=== PATIENT | female | born 1975 | race Caucasian/White ===

== ENCOUNTER 2024-06-14 11:24 | Emergency (ER) | payer OTHER, SELFPAY ==
[2024-06-14 11:30] VITALS: BP 121/83
[2024-06-14 11:56] VITALS: BMI 25.9
--- NOTE | 2024-06-14 11:58 | ED.GENMED ---
History of Present Illness
General
Chief Complaint: Abdominal Symptoms
Source: patient
Time Seen by Provider: 06/14/24 11:36
History of Present Illness
History of Present Illness:
48-year-old female with past medical history of ulcerative colitis and diverticulitis presenting to the emergency department for evaluation of left lower quadrant abdominal pain that started this past Thursday described to be gradually worsening,
constant, nonradiating, sharp and worse with movement and palpation. Unrelieved with [id number] measures. Patient stating pain is very reminiscent of previous flares of diverticulitis. She notes that her ulcerative colitis flares are
usually generalized within the lower abdomen but that her pain is only left lower quadrant today. She denies any other symptoms including fevers, chills, rigors, nausea, vomiting, bowel changes or urinary symptoms. Patient is on a q. 8 weekly
biologic for her ulcerative colitis and notes that she is currently in the middle of her cycle. Patient has no other concerns at this time. Surgical history was noted for appendectomy in 2017
Past History
Past History
ED Past Medical History: Other (Diverticulitis, ulcerative colitis)
ED Past Surgical History: Appendectomy and Orthopedic
Social History
Tobacco: Non-smoker
Alcohol: Occasional
Drug: None
Personal:
Living: with family
Employment: Employed
Review of Systems
Review of Systems
All Other Systems: ROS reviewed and negative except as documented in HPI and ROS
Phy Exam
Physical Exam
Physical Exam:
GENERAL: Alert , in no apparent distress
EYE: clear conjunctiva b/l
HEAD: NCAT
ENT: o/p clr, mmm.
ABDOMEN: Soft, moderate LLQ pain with palpation, grimaces with palpation, no r/g, no cvat
NEUROLOGICAL: Alert and oriented
SKIN: Warm and dry, skin intact.
MUSCULOSKELETAL: well perfused.
PSYCH: Normal and appropriate interaction.
Scores
Heart Failure Risk
Heart Failure Risk Score: Not Applicable
Heart Score for Chest Pain Patients
STEMI patient?: Not applicable
Withdrawal Assessment of Alcohol
Withdrawal Assessment Completed?: Not applicable
Course
Orders/Labs/Results
Orders:
Orders
06/14/24 11:49
CT Abd/pel W Iv And Oral Contr Urgent
Comment:
Reason For Exam: LLQ pain, hx divertic, hx UC, previous appy
Iohexol [Omnipaque] See Protocol PO NOW STA
Ketorolac [Toradol] 30 mg IV NOW STA
06/14/24 12:01
Test Result ONCE
06/14/24 12:03
Complete Blood Count/With Diff Urgent
Comprehensive Metabolic Panel Urgent
HCG, Serum Qualitative Screen Urgent
Lipase Urgent
06/14/24 12:07
Urinalysis Reflex To Culture Urgent
Date Specimen was Collected: 06/14/24
Time Specimen was Collected: 12:06
06/14/24 12:45
Morphine Sulfate 4 mg IV NOW STA
06/14/24 13:43
HYDROmorphone [Dilaudid] 0.5 mg IV NOW STA
06/14/24 13:45
0.9% Sodium Chloride 1000 ml [Nss] 1,000 ml IV BOLUS
06/14/24 15:21
HYDROmorphone [Dilaudid] 0.5 mg IV NOW STA
Abnormal Lab Results
06/14/24
12:03
MPV 13.1 H fL
(7.4-10.4)
06/14/24 12:03
06/14/24 12:03
Vital Signs
Initial and Last Documented VS:
Initial Vital Signs
Temp Pulse Resp BP Pulse Ox
98.1 F 69 18 121/83 100
06/14/24 11:30 06/14/24 11:30 06/14/24 11:30 06/14/24 11:30 06/14/24 11:30
Last Documented Vital Signs
Temp Pulse Resp BP Pulse Ox
98.1 F 58 10 113/82 98
06/14/24 11:30 06/14/24 14:15 06/14/24 14:15 06/14/24 14:00 06/14/24 14:15
MDM/Problems Addressed
Differential Diagnosis Includes:
diverticulitis, UC flare, pancreatitis, renal/ureteral colic
MDM/Problems Addressed:
48-year-old female presenting to the emergency department for evaluation of left lower quadrant abdominal pain. Patient stating pain is very similar to multiple previous episodes of diverticulitis in the past. She does have clearly reproducible
tenderness within the left lower quadrant on examination. Will treat with Toradol for pain control. CT ordered. Reassessment and disposition following
*Radiology
Radiology exam reviewed: radiology read reviewed
*Pulse Oximetry
Patient hypoxic: no
*Critical Care Note
Total Time (30-74mins, 75-104mins- exclusive of procedures): Not Applicable
Comment
Comment:
On first re-eval patient noting no improvement with toradol, 4mg morphine ordered
Patient did have improved pain following morphine but pain started to return about 45 mins later. 0.5mg dilaudid IV ordered
Patient Management
Escalation/DeEscalation of care consider admission/obs:
Patient CT scan shows mild acute diverticulitis of the descending colon and sigmoid colon. There is no perforation or pericolonic abscess. She is afebrile, no leukocytosis. Patient prefers to be discharged home. Has tolerated Augmentin in the
past. Prior to being discharged home she was requesting additional dose of pain medication. is driving the patient home. Prescription for Augmentin and Percocet provided. Patient will follow-up with primary care provider. She is
otherwise aware of return precautions and stable for discharge.
ED Attending Note
-
Portions of this chart may have been created with voice recognition software.� Occasional wrong word or��sound alike� substitutions may have occurred due to the inherent limitations of voice recognition software.
Discharge Plan
Departure
Patient Disposition: Home (Routine Discharge)
Date of Disposition: 06/14/24
Time of Disposition: 15:21
Patient with high blood pressure during this ER visit?: No
Discharge Problem:
Diverticulitis
Instructions: Diverticulitis (DC)
Prescriptions:
New
amoxicillin-pot clavulanate 875-125 mg tablet
1 tab PO BID 10 Days Qty: 20 0RF
oxycodone-acetaminophen [Percocet] 5-325 mg tablet
1 tab PO Q6HPRN PRN (Reason: pain) Qty: 8 0RF
Referrals:
NONE,* [Family Provider] -
Interventions
Interventions:
*Risk Screen - Suicide Last Done: 06/14/24 11:30
*General Assessment Last Done: 06/14/24 11:30
*Neglect/Abuse Screening Last Done: 06/14/24 11:30
ED- Fall Risk Assessment Last Done: 06/14/24 12:43
*ED COVID-19 Vaccine History Last Done: 06/14/24 11:56
SG-Ilbbgo-Gjuxujcjyy Assessment Last Done: 06/14/24 12:43
Discharge Date and Time
Print Language: ROMANIAN
[2024-06-14 12:03] VITALS: BP 111/80
[2024-06-14] MEDS: TORADOL 30 MG IV (12:04)
[2024-06-14] MEDS: OMNIPAQUE 50 ML PO (12:04)
[2024-06-14 12:20] LABS: Urine Albumin Negative (Neg - Trace); Urine Bilirubin Negative (Negative); Urine Character Clear (Clear); Urine Color Yellow; Urine Glucose Negative (Negative); Urine Ketone Negative (Negative); Urine Leukocyte Negative (Negative); Urine Nitrite Negative (Negative); Urine Occult Blood Negative (Negative); Urine Specific Gravity 1.005 (<1.030); Urine Urobilinogen Negative (Neg - 1+)
[2024-06-14 12:27] LABS: HCG, Serum Qualitative Screen Negative
[2024-06-14 12:28] LABS: % Basophils 0.8 % (0-2); % Eosinophils 1.9 % (0-6); % Immature Granulocytes 0.3 % (0-0.5); % Lymphocytes 22.4 % (20.5-51.1); % Monocytes 8.7 % (1.7-9.3); % Neutrophils 65.9 % (42.2-75.2); Absolute Basophils 0.1 10^3/uL (0-0.2); Absolute Eosinophils 0.1 10^3/uL (0-0.7); Absolute Lymphocytes 1.4 10^3/uL (1.2-3.4); Absolute Monocytes 0.5 10^3/uL (0.1-0.6); Absolute Neutrophils 4.1 10^3/uL (1.4-6.5); Hematocrit 40.1 % (37.0-47.0); Hemoglobin 13.7 g/dL (12.0-16.0); Mean Corp Hgb Conc. 34.2 g/dL (33.0-37.0); Mean Platelet Volume 13.1 fL (7.4-10.4); Nucleated Red Blood Cells % 0 %; Platelet Count 134 10^3/uL (130-400); Red Blood Cell Count 4.72 10^6/uL (4.20-5.40); Red Cell Dist. Width 12.8 % (11.5-14.5); White Blood Cell Count 6.2 10^3/uL (4.8-10.8)
[2024-06-14 12:34] LABS: ALT (SGPT) 23 U/L (0-35); AST (SGOT) 31 U/L (14-36); Albumin 4.6 g/dl (3.5-5.0); Alkaline Phosphatase 77 U/L (38-126); Blood Urea Nitrogen 10 mg/dl (7-17); Calcium 9.8 mg/dl (8.4-10.2); Carbon Dioxide 26 mmol/L (22-30); Chloride 107 mmol/L (98-107); Estimated Creatinine Clearance 85 ml/min; Glucose 97 mg/dl (70-99); Lipase 98 U/L (23-300); Potassium 4.3 mmol/L (3.5-5.1); Sodium 137 mmol/L (135-145); Total Bilirubin 0.9 mg/dl (0.2-1.3); eGFR > 60.00
[2024-06-14] MEDS: MORPHINE SULFATE 4 MG IV (12:48)
[2024-06-14 13:00] VITALS: BP 108/74
[2024-06-14] MEDS: DILAUDID 0.5 MG IV ×2 (13:48→15:44)
[2024-06-14] MEDS: NSS 1000 IV (13:49)
[2024-06-14 14:00] VITALS: BP 113/82
[2024-06-14 15:42] VITALS: BP 108/83
== END 2024-06-14 16:04 | disposition home or self-care (01) ==
LOC: EMR 11:24
PROVIDERS: Physician Assistant Medical; EMERGENCY PHYSICIAN Emergency Medicine
DX: K57.32 Diverticulitis of large intestine without perforation or abscess without bleeding (principal); R10.32 Left lower quadrant pain; K51.90 Ulcerative colitis, unspecified, without complications; Z90.49 Acquired absence of other specified parts of digestive tract
CPT/HCPCS: 99284; 96374; 96375; 96376; 74177; 80053; 81003; 83690; 84703; 85025; Q9967

== ENCOUNTER 2025-04-30 22:22 | Emergency (ER) | payer OTHER, SELFPAY ==
[2025-04-30 22:32] VITALS: BP 126/77
[2025-04-30] MEDS: OMNIPAQUE 50 ML PO (22:56)
[2025-04-30 23:05] LABS: % Basophils 0.7 % (0-2); % Immature Granulocytes 0.2 % (0-0.5); % Monocytes 13.2 % (1.7-9.3); % Neutrophils 61.9 % (42.2-75.2); Absolute Basophils 0.1 10^3/uL (0-0.2); Absolute Eosinophils 0.2 10^3/uL (0-0.7); Absolute Lymphocytes 2.3 10^3/uL (1.2-3.4); Absolute Monocytes 1.4 10^3/uL (0.1-0.6); Absolute Neutrophils 6.4 10^3/uL (1.4-6.5); Hematocrit 39.3 % (37.0-47.0); Hemoglobin 13.2 g/dL (12.0-16.0); Mean Corp Hgb Conc. 33.6 g/dL (33.0-37.0); Mean Corpuscular Hgb 29.4 pg (27.0-31.0); Mean Corpuscular Volume 87.5 fL (81.0-99.0); Mean Platelet Volume 12.4 fL (7.4-10.4); Nucleated Red Blood Cells % 0 %; Platelet Count 141 10^3/uL (130-400); Red Blood Cell Count 4.49 10^6/uL (4.20-5.40); Red Cell Dist. Width 12.4 % (11.5-14.5); White Blood Cell Count 10.3 10^3/uL (4.8-10.8)
[2025-04-30 23:19] LABS: HCG, Serum Qualitative Screen Negative
[2025-04-30 23:25] LABS: ALT (SGPT) 17 U/L (0-35); AST (SGOT) 22 U/L (14-36); Albumin 4.6 g/dl (3.5-5.0); Alkaline Phosphatase 76 U/L (38-126); Blood Urea Nitrogen 8 mg/dl (7-17); Calcium 9.7 mg/dl (8.4-10.2); Carbon Dioxide 29 mmol/L (22-30); Chloride 105 mmol/L (98-107); Glucose 108 mg/dl (70-99); Lipase 78 U/L (23-300); Potassium 3.9 mmol/L (3.5-5.1); Sodium 140 mmol/L (135-145); Total Bilirubin 0.6 mg/dl (0.2-1.3); Total Protein 7.4 g/dl (6.3-8.2); eGFR > 60.00
[2025-04-30 23:37] VITALS: BMI 26.7
--- NOTE | 2025-04-30 23:46 | ED.GENMED ---
History of Present Illness
General
Chief Complaint: Abdominal Pain
Time Seen by Provider: 04/30/25 23:25
History of Present Illness
History of Present Illness:
Patient is a 49-year-old woman with history of diverticulitis ulcerative colitis on every 6-week infusion presenting to the emergency department abdominal pain. Patient states that she developed abdominal pain to the left lower quadrant a few days
ago. Since then the pain has progressed. She is been having alternating constipation and diarrhea. No fevers but has been having some chills. No nausea or vomiting. She has had her appendix removed. She has had recurrent bouts of
diverticulitis and states that this does feel similar. Her GI doctor is at [place]. She did see them a few days ago prior to the symptoms beginning.
Past History
Past History
ED Past Medical History: Other (Diverticulitis, ulcerative colitis)
ED Past Surgical History: Appendectomy and Orthopedic
Social History
Tobacco: Non-smoker
Alcohol: Occasional
Drug: None
Personal:
Living: with family
Employment: Employed
Phy Exam
Physical Exam
Physical Exam:
GENERAL: in no acute distress
HEENT: normocephalic, extraocular movements intact, moist oral mucosa
NECK: normal inspection
RESPIRATORY: no respiratory distress, clear to auscultation bilaterally
CARDIOVASCULAR: regular rate and rhythm
ABDOMEN/: soft, non-distended, tenderness palpation to the left lower quadrant, no rebound or guarding
EXTREMITIES: non-tender, no edema/swelling
NEUROLOGIC: awake and alert, moves all extremities
SKIN: warm
Course
Orders/Labs/Results
Orders:
Orders
04/30/25 22:50
Iohexol [Omnipaque] See Protocol PO NOW STA
04/30/25 22:51
Test Result ONCE
04/30/25 22:56
Complete Blood Count/With Diff Urgent
Comprehensive Metabolic Panel Urgent
HCG, Serum Qualitative Screen Urgent
Lipase Urgent
04/30/25 23:26
Iohexol [Omnipaque] See Protocol PO NOW STA
04/30/25 23:41
HYDROmorphone [Dilaudid] 0.5 mg IV NOW STA
05/01/25 01:00
CT Abd/pel W Iv And Oral Contr Urgent
Reason For Exam: abdominal pain hx divertic
05/01/25 01:23
HYDROmorphone [Dilaudid] 0.5 mg IV NOW STA
05/01/25 02:02
Amoxicillin 875 mg/Clav 125 mg [Augmentin 875 mg/125 mg] 1 tablet PO NOW STA
Abnormal Lab Results
04/30/25
22:56
MPV 12.4 H fL
(7.4-10.4)
Absolute Monos (auto) 1.4 H 10^3/uL
(0.1-0.6)
Monocytes % 13.2 H %
(1.7-9.3)
Glucose 108 H mg/dl
(70-99)
04/30/25 22:56
04/30/25 22:56
Vital Signs
Initial and Last Documented VS:
Initial Vital Signs
Temp Pulse Resp BP Pulse Ox
97.8 F 77 16 126/77 100
04/30/25 22:32 04/30/25 22:32 04/30/25 22:32 04/30/25 22:32 04/30/25 22:32
Last Documented Vital Signs
Temp Pulse Resp BP Pulse Ox
97.8 F 86 14 128/74 99
04/30/25 22:32 05/01/25 00:00 05/01/25 00:00 05/01/25 00:00 05/01/25 00:00
MDM/Problems Addressed
Differential Diagnosis Includes:
Patient is a 49-year-old woman presenting to the emergency department with abdominal pain for the past few days. Vitals are notable for being afebrile and on exam patient does have tenderness palpation in the left lower quadrant. Concern for
diverticulitis versus UC flare though less likely versus enteritis. Blood work obtained prior to my evaluation is unremarkable. Will proceed with CT scan and pain control. I did offer nausea medicine the patient declined at this time
*Critical Care Note
Total Time (30-74mins, 75-104mins- exclusive of procedures): Not Applicable
Update Note
Update Note:
CT scan per my interpretation with no signs of perforation. Per the official read she does have diverticulitis. Given the patient did require Dilaudid here I did discuss admission versus discharge. She did opt for discharge. Will treat with
Augmentin. Patient states she has tolerated before. Will give her Zofran as well in case she develops nausea at home. She is requesting short course of tramadol as every time she is a diverticulitis flare the tramadol is the only medication that
helps. I did review patient's PDMP and patient was last prescribed it last year. Will give her 3 tablets of tramadol. Will discharge patient at this time. Strict return precautions given.
ED Attending Note
-
Portions of this chart may have been created with voice recognition software.� Occasional wrong word or��sound alike� substitutions may have occurred due to the inherent limitations of voice recognition software.
Discharge Plan
Departure
Patient Disposition: Home (Routine Discharge)
Date of Disposition: 05/01/25
Time of Disposition: 02:04
Patient with high blood pressure during this ER visit?: No
Discharge Problem:
Diverticulitis
Prescriptions:
New
amoxicillin-pot clavulanate 875-125 mg tablet
1 tab PO BID 10 Days Qty: 20 0RF
ondansetron 4 mg tablet,disintegrating
4 mg PO Q8H PRN (Reason: nausea and vomiting) 3 Days Qty: 7 0RF
tramadol 50 mg tablet
50 mg PO Q8H PRN (Reason: Pain) Qty: 3 0RF
No Action
Entyvio 300 mg Recon Soln
300 mg IV Q6W
Referrals:
UNKNOWN - PT DOES,NOT KNOW [Family Provider]
Activity Restrictions/Additional Instructions:
You were seen in the Emergency Department today for abdominal pain. While you were here we performed blood work, which was reassuring. Your CT scan showed diverticulitis. We did start you on antibiotics for it.
We would like for you to follow up with your primary care physician for further evaluation. If you experience fever, worsening of your symptoms, or develop any other new or concerning symptoms, please return to the Emergency Department immediately.
Please see the attached sheet for additional information.
Interventions
Interventions:
*Risk Screen - Suicide Last Done: 04/30/25 22:32
*General Assessment Last Done: 04/30/25 23:37
*Neglect/Abuse Screening Last Done: 04/30/25 22:32
*ED- Fall Risk Assessment Last Done: 04/30/25 23:28
*ED COVID-19 Vaccine History Last Done: 04/30/25 23:28
BI-Itmksz-Uwfblpjztu Assessment Last Done: 04/30/25 23:37
Discharge Date and Time
Print Language: SINHALA
[2025-04-30] MEDS: DILAUDID 0.5 MG IV (23:52)
[2025-05-01] VITALS: BP 128/74
[2025-05-01] MEDS: DILAUDID 0.5 MG IV (01:27)
[2025-05-01] MEDS: AUGMENTIN 875 MG/125 MG 1 TABLET PO (02:24)
[2025-05-01 02:29] VITALS: BP 126/66
== END 2025-05-01 02:32 | disposition home or self-care (01) ==
LOC: EMR 22:22
PROVIDERS: Physician Assistant; EMERGENCY PHYSICIAN Student in an Organized Health Care Education/Training Program
DX: K57.32 Diverticulitis of large intestine without perforation or abscess without bleeding (principal); K51.90 Ulcerative colitis, unspecified, without complications; Z79.899 Other long term (current) drug therapy; Z88.1 Allergy status to other antibiotic agents; Z88.0 Allergy status to penicillin; Z88.8 Allergy status to other drugs, medicaments and biological substances
CPT/HCPCS: 99284; 96374; 96376; 74177; 80053; 83690; 84703; 85025; Q9967